=== PATIENT | female | born 1985 | race African-American/Black ===

== ENCOUNTER 2019-02-26 18:39 | Emergency (ER) | payer SELFPAY ==
[~2019-02-26] VITALS: Ht 165.1 cm; Wt 79.4 kg
[2019-02-26 18:50] VITALS: BP_SYST 115; BP_DIAS 67; BP_DIAS 71
--- NOTE | 2019-02-26 18:51 | NUR ---
ED Nurse Note: PT FROM HOME CAME IN DUE TO NECK PAIN SINCE THIS MORNING. DENIES FALL OR ANY INJURY. PT IS AAO X4, AMBULATORY AND SPEAKS IN FULL SENTENCES. PT NOT ABLE TO MOVE HER NECK AND IS TILTED TO HER RIGHT SIDE. NO AIRWAY COMPROMISE.
[2019-02-26] MEDS: Ketorolac 30mg Inj IM ONE (19:01)
--- NOTE | 2019-02-26 19:09 | NUR ---
HAND-OFF: Report given to JERAMY GILLILAND.
[2019-02-26] MEDS ORDERED: NAPROXEN500 M2 ORAL (19:43)
[2019-02-26] MEDS ORDERED: ROBAXIN500 MG PO (19:43)
--- NOTE | 2019-02-26 19:43 | Emergency Room Report ---
History of Present Illness General Chief Complaint: Neck Pain Source: Patient (Vanesa Pinedo) Present Illness HPI 33-year-old female with no significant past medical history here complaining of waking up this morning with a stiff and painful neck. Patient denies any injury or fall. Patient reports that she recently left her job for stress relief. Denies SI and HI. Patient is walking with her neck tilted to the right and saying that she is unable to straighten it. Complaining of pain radiation down her left shoulder and the fingers. Denies tingling and numbness. Denies headache, photophobia, recent URI symptoms. Denies fever and chills, chest pain, shortness of breath, palpitation, no other associated symptoms. Denies dizziness or vertigo. Has not taken any medication for her symptoms. (Vanesa Pinedo) Allergies: Coded Allergies: No Known Allergies (Unverified , 02/26/19) Patient History Past Medical History: see triage record Past Surgical History: unable to obtain Pertinent Family History: none Last Menstrual Period: 02/26/19 Now: No Immunizations: UTD Reviewed Nursing Documentation: PMH: Agreed; PSxH: Agreed (Vanesa Pinedo) Nursing Documentation-PMH Past Medical History: No Stated History (Vanesa Pinedo) Review of Systems All Other Systems: negative except mentioned in HPI (Vanesa Pinedo) Physical Exam Vital Signs Date Time Temp Pulse Resp B/P (MAP) Pulse Ox O2 Delivery O2 Flow Rate FiO2 02/26/19 18:43 98.1 78 18 109/71 (84) 99 Room Air Sp02 EP Interpretation: reviewed, normal General Appearance: normal inspection, well appearing, no apparent distress, alert, GCS 15 Head: normocephalic, atraumatic Eyes: bilateral eye normal inspection, bilateral eye PERRL ENT: normal ENT inspection, normal pharynx, no angioedema, normal voice, TMs + canals normal, uvula midline, moist mucus membranes Neck: supple, thyroid normal, no meningismus, no bony tend, no carotid bruits, supple/symm/no masses, limited range of motion - pt resists when trying to turn her neck to the left Respiratory: normal inspection, chest non-tender, lungs clear, normal breath sounds, no rhonchi, no respiratory distress, no retraction Cardiovascular #1: normal inspection, normal peripheral pulses, regular rate, rhythm, no murmur, normal capillary refill Cardiovascular #2: 2+ carotid (R), 2+ carotid (L) Gastrointestinal: normal inspection, soft, no mass Genitourinary: no CVA tenderness Musculoskeletal: normal inspection, back normal, digits/nails normal, gait/ station normal Neurologic: normal inspection, alert, oriented x3, responsive, school librarian III-XII nml as tested Psychiatric: normal inspection, judgement/insight normal, memory normal Skin: no rash, palpation normal Lymphatic: normal inspection, no adenopathy (Vanesa Pinedo) Medical Decision Making PA Attestation All diagnoses and treatment plans were reviewed and discussed with my supervising physician Dr. Claros (Vanesa Pinedo) Diagnostic Impression: Primary Impression: Neck strain ER Course 33-year-old female with no significant past medical history here complaining of waking up this morning with a stiff and painful neck. Patient denies any injury or fall. Patient reports that she recently left her job for stress relief. Denies SI and HI. Patient is walking with her neck tilted to the right and saying that she is unable to straighten it. Complaining of pain radiation down her left shoulder and the fingers. Denies tingling and numbness. Denies headache, photophobia, recent URI symptoms. Denies fever and chills, chest pain, shortness of breath, palpitation, no other associated symptoms. Denies dizziness or vertigo. Has not taken any medication for her symptoms. Ddx considered but are not limited to : Next sprain, strain, fracture, meningitis Vital signs: are WNL, pt. is afebrile H&PE are most consistent with: neck strain ORDERS: C-spine x-ray, Toradol, naproxen, Robaxin ED INTERVENTIONS: Toradol IM DISCHARGE: At this time pt. is stable for d/c to home. Will provide printed patient care instructions, and any necessary prescriptions. Care plan and follow up instructions have been discussed with the patient prior to discharge. Patient to follow-up with a primary care provider for further assessment at this time no sign of meningismus noted and her symptoms is secondary to tension as well as pulled muscle. I advised the patient to alternate between icing and heating the affected area and avoid strenuous physical activity however rotational movements of the legs are needed for symptom relief. If worsening symptoms return to the emergency room. (Vanesa Pinedo) Other X-Ray Diagnostic Results Other X-Ray Diagnostic Results : X-Ray ordered: C spine # of Views/Limited Vs Complete: 3 View Indication: Pain EP Interpretation: Yes PA Xray: Interpretation reviewed, by supervising MD, and agrees with findings. Interpretation: no dislocation, no soft tissue swelling, no fractures Impression: No acute disease Electronically Signed by: vanesa wade PA-C (Vanesa Pinedo) Other X-Ray Diagnostic Results : Electronically Signed by: Cassie Guillermo documentation of Xray reviewed by me and is accurate, Jonathan Claros MD (Jonathan Claros MD) Last Vital Signs Date Time Temp Pulse Resp B/P (MAP) Pulse Ox O2 Delivery O2 Flow Rate FiO2 02/26/19 18:50 98.2 88 20 115/67 99 Room Air (Vanesa Pinedo) Disposition: HOME, SELF-CARE Condition: Stable Scripts Methocarbamol* (ROBAXIN*) 500 Mg Tablet 500 MG PO TID, #21 TAB 0 Refills Prov: Vanesa Pinedo 02/26/19 Naproxen* (NAPROXEN*) 500 Mg Tablet 500 MG ORAL TWICE A DAY, #30 TAB Prov: Vanesa Pinedo 02/26/19 Patient Instructions: Cervical Strain and Sprain With Rehab-SportsMed Additional Instructions: Take medication as directed follow-up with your primary care provider alternate between icing and heating the affected area avoid strenuous physical activity Vanesa Pinedo Feb 26, 2019 19:42 Jonathan Claros MD Feb 27, 2019 04:20
[2019-02-26 19:55] VITALS: BP 110/65
--- NOTE | 2019-02-26 19:55 | NUR ---
ED Nurse Note: pt cleared to be d/c per ER provider, pt discharge and aftercare instruction provided w/ prescription, pt education done via discussion and handout, pt advised to follow up with pcp or return to ed if changes in condition, pt verbalized understanding and agrees with plan, vss, ambulatory w/ steady gait, left w/ all belongings, accompanied by family members.
--- NOTE | 2019-02-27 11:09 | Diagnostic Imaging Report ---
Indication: Neck Pain Findings: 3 views of the cervical spine were obtained. There is no acute fracture identified. Alignment is normal. The open-mouth odontoid view shows an intact dens and good alignment of the lateral masses with respect to the body of C2. There is no soft tissue swelling. Impression: Negative cervical spine examination.
== END 2019-02-26 19:55 | disposition home or self-care (01) ==
LOC: EMR 18:56
DX: S16.1XXA Strain of muscle, fascia and tendon at neck level, initial encounter (principal); W19.XXXA Unspecified fall, initial encounter; Y92.9 Unspecified place or not applicable
CPT/HCPCS: 72040; 96372; 99283; J1885

== ENCOUNTER 2020-07-12 20:50 | Emergency (ER) | payer MEDICAID ==
[~2020-07-12] VITALS: Ht 165.1 cm; Wt 77.1 kg
[~2020-07-12 20:50] MED LIST: NAPROXEN500 M2 ORAL; ROBAXIN500 MG PO
[2020-07-12 21:13] VITALS: BP 124/57
--- NOTE | 2020-07-12 21:27 | Emergency Room Report ---
History of Present Illness General Chief Complaint: Toothache Source: Patient Present Illness HPI Patient presents with a severe toothache. She was eating hard candy 4 days ago. After that her right upper rear molar was sensitive to cold. She has had several episodes where cold his caused shooting nerve pain up into her head. It was so severe today that she had to leave work. She also had to pin puller be cause of the severity of the pain. The pain was 10/10 at that time but has subsequently subsided. She denies fevers or chills. She has never had fillings before. She is try to follow-up with a dentist in the last few days but has been unable to. Patient works at [employer] but has been using PPE appropriately. She denies upper respiratory symptomatology. The patient is 8 weeks at this time. She has had nausea but has been able to eat and has not been vomiting. She denies any vaginal bleeding or discharge. She feels that her urine has been strange coming out but does not specifically report dysuria. Last menstruation was May 18. She has a 19-year-old at home. Allergies: Coded Allergies: No Known Allergies (Unverified , 02/26/19) COVID-19 Screening Contact w/high risk pt: No Experienced COVID-19 symptoms?: No COVID-19 Testing performed NOTCHED BLADE LOADER: No Patient History Past Medical History: see triage record Social History: Denies: smoking Social History Narrative Works at [employer], as 19-year-old at home. Last Menstrual Period: 05/18/20 Now: Yes - 8 WEEKS Reviewed Nursing Documentation: PMH: Agreed; PSxH: Agreed Nursing Documentation-PMH Past Medical History: No Stated History Review of Systems Constitutional: Reports: see HPI ENT: Reports: see HPI Respiratory: Reports: see HPI Gastrointestinal: Reports: see HPI Genitourinary: Reports: see HPI Neurological: Reports: see HPI Physical Exam Vital Signs Date Time Temp Pulse Resp B/P (MAP) Pulse Ox O2 Delivery O2 Flow Rate FiO2 07/12/20 20:56 98.4 89 24 124/57 (79) 99 Room Air Sp02 EP Interpretation: reviewed, normal General Appearance: well appearing, no apparent distress, GCS 15 Head: normocephalic Eyes: bilateral eye normal inspection, bilateral eye PERRL, bilateral eye EOMI ENT: moist mucus membranes, other - Upper rear molar with possible chip or carry Neck: normal inspection Respiratory: normal inspection Cardiovascular #1: regular rate, rhythm Cardiovascular #2: 2+ radial (R) Gastrointestinal: normal inspection Genitourinary: deferred - Due to lack of symptoms Musculoskeletal: gait/station normal Neurologic: alert, grossly normal Psychiatric: mood/affect normal Skin: normal color, no rash Medical Decision Making Diagnostic Impression: Primary Impression: Pain, dental Additional Impressions: Early stage of Nausea UTI (urinary tract infection) Qualified Codes: N30.00 - Acute cystitis without hematuria ER Course Patient presents with dental pain and is 8 weeks with nausea and some possible dysuria. Differential includes dental abscess, dental caries, nerve root pain amongst others. She is at this time and complains of some nausea. Urinary tract infection needs to be excluded. The patient is given a dose of Tylenol at this time. Urinalysis with some pyuria. Discussed findings with patient and treatment plan. Patient improved and stable for outpatient observation and treatment. Laboratory Tests Test 07/12/20 21:27 Urine Color Pale yellow Urine Appearance Slightly cloudy Urine pH 5 (4.5-8.0) Urine Specific [place] 1.020 (1.005-1.035) Urine Protein Negative (NEGATIVE) Urine Glucose (UA) Negative (NEGATIVE) Urine Ketones Negative (NEGATIVE) Urine Blood 1+ (NEGATIVE) H Urine Nitrite Negative (NEGATIVE) Urine Bilirubin Negative (NEGATIVE) Urine Urobilinogen Normal MG/DL (0.0-1.0) Urine Leukocyte Esterase 1+ (NEGATIVE) H Urine RBC 0-2 /HPF (0 - 2) Urine WBC 10-15 /HPF (0 - 2) H Urine Squamous Epithelial Cells Few /LPF (NONE/OCC) Urine Bacteria Occasional /HPF (NONE) Urine HCG, Qualitative Positive (NEGATIVE) Last Vital Signs Date Time Temp Pulse Resp B/P (MAP) Pulse Ox O2 Delivery O2 Flow Rate FiO2 07/12/20 22:15 98.4 84 24 124/57 99 Room Air Status: improved Disposition: HOME, SELF-CARE Condition: Improved Scripts Promethazine HCl (Promethegan) 25 Mg Supp.rect 25 MG RECTAL Q8HR PRN for Nausea & Vomiting, #3 SUPP 1 Refill Prov: Jonathan Claros MD 07/12/20 Promethazine Hcl* (PHENERGAN*) 25 Mg Tablet 25 MG ORAL Q8HR, #6 TAB Prov: Jonathan Claros MD 07/12/20 Lidocaine HCl 2% Viscous (Lidocaine HCl 2% Viscous) 100 Ml Solution 1 APPLIC ORAL QID for pain, #30 ML Prov: Jonathan Claros MD 07/12/20 Cephalexin* (KEFLEX*) 500 Mg Capsule 500 MG ORAL EVERY 6 HOURS, #28 CAP Prov: Jonathan Claros MD 07/12/20 Jonathan Claros MD Jul 12, 2020 21:27
[2020-07-12 21:41] LABS: APPEARANCE,URINE SLIGHTLY CLOUDY; BILIRUBIN, URINE NEGATIVE (NEGATIVE); COLOR,URINE PALE YELLOW; GLUCOSE, URINE (UA) NEGATIVE (NEGATIVE); KETONES,URINE NEGATIVE (NEGATIVE); LEUKOCYTE ESTERASE ,URINE 1+ (NEGATIVE); NITRITE,URINE NEGATIVE (NEGATIVE); PH,URINE 5 (4.5-8.0); PROTEIN,URINE NEGATIVE (NEGATIVE); UROBILINOGEN,URINE NORMAL MG/DL (0.0-1.0)
[2020-07-12] MEDS ORDERED: PROMETHAZINE HC25 M1 ORAL (22:08)
[2020-07-12] MEDS ORDERED: PHENERGAN SUPP25 MG RECTAL (22:08)
[2020-07-12] MEDS ORDERED: CEPHALEXIN500 MG ORAL (22:08)
[2020-07-12] MEDS ORDERED: LIDOCAINE VISC100 ML ORAL (22:08)
[2020-07-12 22:15] VITALS: BP 124/57
== END 2020-07-12 22:15 | disposition home or self-care (01) ==
LOC: EMR 21:29
DX: K08.89 Other specified disorders of teeth and supporting structures (principal); O23.41 Unspecified infection of urinary tract in pregnancy, first trimester; O26.891 Other specified pregnancy related conditions, first trimester; R11.0 Nausea; Z3A.08 8 weeks gestation of pregnancy
CPT/HCPCS: 81003; 81025; 87086; 87181; Z7502; 99283